=== PATIENT | male | born 1970 | race Caucasian/White ===

== ENCOUNTER 2017-05-05 11:03 | Inpatient (IN) | payer OTHER ==
[2017-05-05 11:58] VITALS: BMI 28.3
--- NOTE | 2017-05-05 13:03 | HP ---
COWS - Scale Resting Pulse: 0= [place] 80 or Below Sweatin= Chills/Flushing Restless Observation: 3= Extraneous Movement Pupil Size: 2= Moderately Dilated Bone or Joint Aches: 4=Acute Joint/Muscle Pain Runny Nose/ Eye Tearin= Nasal Congestion GI Upset > 30mins: 1= Stomach Cramp Tremor Observation: 1= Tremor [place], Not Seen Yawning Observation: 1= 1-2x During Session Anxiety or Irritability: 2=Irritable/Anxious Goose Flesh Skin: 0=Smooth Skin COWS Score: 16 CIWA Score - CIWA Score Nausea/Vomitin Muscle Tremors: 4-Moderate,w/Arms Extend Anxiety: 4-Mod. Anxious/Guarded Agitation: 3 Paroxysmal Sweats: 1-Minimal Palms Moist Orientation: 0-Oriented Tacttile Disturbances: 0-None Auditory Disturbances: 0-None Visual Disturbances: 0-None Headache: 0-None Present CIWA-Ar Total Score: 15 Admission ROS [facility] - HPI Chief Complaint: DETOX TX FOR HEROIN,COCAINE AND ALCOHOL DEPENDENCE Allergies/Adverse Reactions: Allergies Allergy/AdvReac Type Severity Reaction Status Date / Time No Known Allergies Allergy Verified 05/05/17 12:46 History of Present Illness: 46 Y/O MALE WITH A HX OF ALCOHOL, HEROIN AND COCAINE DEPENDENCE SEEKING DETOX TX Exam Limitations: No Limitations - Ebola screening Have you traveled outside of the country in the last 21 days: No Have you had contact with anyone from an Ebola affected area: No Have you been sick,other than usual withdrawal symptoms: No Do you have a fever: No - Review of Systems Constitutional: Chills, Night Sweats, Changes in sleep EENT: reports: Blurred Vision (READING GLASSES), Tearing, Nose Congestion, Dental Problems (MISSING TEETH) Respiratory: reports: No Symptoms reported Cardiac: reports: Lightheadedness GI: reports: Constipated, Diarrhea, Nausea : reports: Frequency Musculoskeletal: reports: Back Pain, Joint Pain Integumentary: reports: Bruising (RIGHT ELBOW IVD INJ SITE) Neuro: reports: Tremors, Dizziness Endocrine: reports: No Symptoms Reported Hematology: reports: No Symptoms Reported Psychiatric: reports: Orientated x3, Anxious Other Systems: Reviewed and Negative Patient History - Patient Medical History Hx Anemia: No Hx Asthma: No Hx Chronic Obstructive Pulmonary Disease (COPD): No Hx Cancer: No Hx Cardiac Disorders: No Hx Congestive Heart Failure: No Hx Hypertension: No Hx Hypercholesterolemia: No Hx Pacemaker: No HX Cerebrovascular Accident: No Hx Seizures: No Hx Dementia: No Hx Diabetes: Yes (TYPE 2 DM-UNDER CONTROL) Hx Gastrointestinal Disorders: No Hx Liver Disease: No Hx Genitourinary Disorders: No Hx Sexually Transmitted Disorders: No (DENIES) Hx Renal Disease (ESRD): No Hx Thyroid Disease: No Hx Human Immunodeficiency Virus (HIV): No (SINCE 01/2017- RECENTLY DIAGNOSED.) Hx Hepatitis C: Yes (SINCE ONE YR AGO) Hx Depression: No Hx Suicide Attempt: No (DENIES) Hx Schizophrenia: No Other Medical History: WTQKAY=099;GLNLR=882,000; HCV LOAD= 750,000; ELEVATED LIVER ENZYMES. - Patient Surgical History Past Surgical History: Yes Hx Neurologic Surgery: No Hx Cataract Extraction: No Hx Cardiac Surgery: No Hx Lung Surgery: No Hx Breast Surgery: No Hx Breast Biopsy: No Hx Abdominal Surgery: No Hx Appendectomy: No Hx Cholecystectomy: No Hx Genitourinary Surgery: No Hx Orthopedic Surgery: No Other Surgical History: Tonsilectomy in 1973 Anesthesia Reaction: No - PPD History Previous Implant?: Yes Documented Results: Negative w/proof Implanted On Prior [facility] Admission?: Yes Date: 03/17/15 PPD to be Administered?: Yes - Reproductive History Patient is a Female of Child Bearing Age (11 -55 yrs old): No (MALE) Patient : (N/A) - Smoking Cessation Smoking history: Current every day smoker Have you smoked in the past 12 months: Yes Aproximately how many cigarettes per day: 20 Cigars Per Day: 0 Hx Chewing Tobacco Use: No Initiated information on smoking cessation: Yes 'Breaking Loose' booklet given: 05/05/17 - Substance & Tx. History Hx Alcohol Use: Yes (BEER/VODKA) Hx Substance Use: Yes (HEROIN/COCAINE) Substance Use Type: Alcohol, Cocaine, Heroin Hx Substance Use Treatment: Yes (LAST TX AT [facility]) - Substances Abused Heroin Route: Injection Frequency: Daily Amount used: 25-30 bags Age of first use: 42 Date of Last Use: 05/04/17 Cocaine Route: Smoking Frequency: Daily Amount used: 1/2 Gm Age of first use: 14 Date of Last Use: 05/04/17 Alcohol Route: Oral Frequency: Daily Amount used: Beer - 4 25oz Age of first use: 7 Date of Last Use: 05/05/17 Family Disease History - Family Disease History Family Disease History: Other: Father (ALCOHOL), Mother (ALCOHOL), Brother ( ALCOHOL) Admission Physical Exam [facility] - Vital Signs Vital Signs: Vital Signs - 24 hr 05/05/17 11:54 Temperature 97.7 F Pulse Rate 78 Respiratory 20 Rate Blood Pressure 140/85 - Physical General Appearance: Yes: Moderate Distress, Irritable, Anxious HEENTM: Yes: EOMI, Normocephalic, JAYS[place], Pharynx Normal, Nasal Congestion, Rhinorrhea Respiratory: Yes: Chest Non-Tender, Lungs Clear, Normal Breath Sounds, No Respiratory Distress Neck: Yes: No masses,lesions,Nodules, Supple, Trachea in good position Breast: Yes: Breast Exam Deferred Cardiology: Yes: Regular Rhythm, Regular Rate, S1, S2 Abdominal: Yes: Normal Bowel Sounds, Non Tender, Soft Genitourinary: Yes: Other (N/C) Musculoskeletal: Yes: full range of Motion, Gait Steady Extremities: Yes: Normal Range of Motion, Non-Tender Neurological: Yes: snow maker II-XII NML intact, Fully Oriented, Alert, Motor Strength 5/5 Integumentary: Yes: Dry, Warm, Track [place] (LEFT AND RIGHT ELBOW) - Diagnostic (1) DM (diabetes mellitus), type 2 Current Visit: Yes Status: Suspected Comment: PREVIOUS HX. TODAY, PT DECLINES MONITORING STATING HE IS UNDER CONTROL. PT ALSO DECLINED NCS DIET AND WANTS REGULAR DIET. (2) Nicotine dependence Current Visit: Yes Status: Acute Qualifiers: Nicotine product type: cigarettes Substance use status: in withdrawal Qualified Code(s): F17.213 - Nicotine dependence, cigarettes, with withdrawal (3) Alcohol dependence with uncomplicated withdrawal Current Visit: Yes Status: Acute (4) Cocaine dependence, uncomplicated Current Visit: Yes Status: Acute (5) Opioid dependence with withdrawal Current Visit: Yes Status: Acute (6) HIV (human immunodeficiency virus infection) Current Visit: Yes Status: Chronic (7) History of hepatitis C Current Visit: Yes Status: Chronic Cleared for Admission [facility] - Detox or Rehab [facility] Level of Care: Medically Managed Detox Regimen/Protocol: Methadone/Librium [facility] Breath Alcohol Content Breath Alcohol Content: 0 Urine Drug Screen - Results Drug Screen Negative: No Urine Drug Screen Results: MARINA-Cocaine, OPI-Opiates, MTD-Methadone
[2017-05-05] MEDS ORDERED: LOPERAMIDE HCL 2 MG CAPSULE PO PRN (13:22)
[2017-05-05] MEDS ORDERED: P-EPHED 60MG/TRIPROLIDI 2.5MG TABLET PO PRN (13:22)
[2017-05-05] MEDS ORDERED: MAGNESIUM HYDROX 2400MG/30ML ORAL SUSPENSION 30 ML CUP PO PRN (13:22)
[2017-05-05] MEDS ORDERED: IBUPROFEN 400 MG TABLET (FP) PO PRN (13:22)
[2017-05-05] MEDS ORDERED: MAGNESIUM CITRATE 300 ML BOTTLE PO PRN (13:22)
[2017-05-05] MEDS ORDERED: guaiFENesin/D-METHORPHAN HB 10 ML UNIT-DOSE CUPS PO PRN (13:22)
[2017-05-05] MEDS ORDERED: hydrOXYzine PAMOATE 25 MG CAPSULE (FP) PO PRN (13:22)
[2017-05-05] MEDS ORDERED: MAG HYDROX/AL HYDROX/SIMETH 30 ML UNIT-DOSE CUP PO PRN (13:22)
[2017-05-05] MEDS ORDERED: chlordiazePOXIDE HCL 25 MG CAPSULE PO PRN (13:22)
[2017-05-05] MEDS ORDERED: MENTHOL/PHENOL 1 EACH UD MM PRN (13:22)
[2017-05-05] MEDS ORDERED: ACETAMINOPHEN 325 MG TABLET (FP) PO PRN (13:22)
[2017-05-05] MEDS: NICOTINE 14 MG/24 HOURS TOPICAL PATCH TD SCH (14:09)
[2017-05-05] MEDS ORDERED: chlordiazePOXIDE HCL 25 MG CAPSULE PO ONE (14:15)
[2017-05-05] MEDS ORDERED: METHADONE HCL 10 MG TABLET (FOR DETOX USE ONLY) PO ONE ×2 (14:15→23:00)
[2017-05-05] MEDS: chlordiazePOXIDE HCL 25 MG CAPSULE PO SCH ×2 (17:20→22:29)
[2017-05-05 17:42] LABS: MCH 30.5 pg (25.7-33.7); MCHC 34.4 g/dl (32.0-35.9); MEAN CELL VOLUME 88.7 fl (80-96); PLATELET COUNT 153 K/MM3 (134-434); RDW 15.1 % (11.9-15.9); WHITE BLOOD COUNT 5.4 K/mm3 (4.0-10.0)
[2017-05-05 17:51] LABS: ALBUMIN 3.6 g/dl (3.4-5.0); ALK PHOS 59 U/L (45-117); ANION GAP 9 (8-16); BILIRUBIN,TOTAL 1.5 mg/dL (0.2-1.0); CALCIUM 8.4 mg/dL (8.5-10.1); CO2 29 mmol/L (21-32); CREATININE 1.1 mg/dL (0.7-1.3); GLUCOSE,RANDOM 195 mg/dL (74-106); SGOT/AST 315 U/L (15-37); SGPT/ALT 302 U/L (12-78); TOT PROT 7.3 g/dl (6.4-8.2)
[2017-05-05 18:06] LABS: URINE APPEARANCE CLEAR; URINE BILIRUBIN NEGATIVE (NEGATIVE); URINE BLOOD NEGATIVE (NEGATIVE); URINE COLOR AMBER; URINE GLUCOSE (UA) NEGATIVE (NEGATIVE); URINE KETONE NEGATIVE (NEGATIVE); URINE LEUK ESTERASE NEGATIVE (NEGATIVE); URINE NITRITE NEGATIVE (NEGATIVE); URINE PROTEIN NEGATIVE (NEGATIVE); URINE UROBILINOGEN 4.0 E.U/dl mg/dL (0.2-1.0)
--- NOTE | 2017-05-05 19:13 | EKG ---
Test Reason : Blood Pressure : / mmHG Vent. Rate : 072 BPM Atrial Rate : 072 BPM P-R Int : 132 ms QRS Dur : 086 ms QT Int : 418 ms P-R-T Axes : 014 017 020 degrees QTc Int : 457 ms SINUS RHYTHM WITH PREMATURE ATRIAL COMPLEXES WITH ABERRANT CONDUCTION INFERIOR INFARCT , AGE UNDETERMINED ABNORMAL ECG NO PREVIOUS ECGS AVAILABLE REPEAT EKG IF CLINICALLY INDICATED Confirmed by JOVANA PRO MD ([id number]) on 05/05/2017 7:13:29 PM Referred By: Paramjit Montanez Confirmed By:JOVANA PRO MD
[2017-05-05] MEDS: THIAMINE HCL 100 MG TABLET (FP) PO SCH (22:29)
[2017-05-05] MEDS: diphenhydrAMINE HCL 50 MG CAPSULE PO PRN (22:30)
[2017-05-06] MEDS: chlordiazePOXIDE HCL 25 MG CAPSULE PO SCH ×4 (05:45→22:17)
[2017-05-06] MEDS ORDERED: METHADONE HCL 10 MG TABLET (FOR DETOX USE ONLY) PO SCH (10:00)
[2017-05-06] MEDS: PRENATAL VITAMINS W/ FOLIC ACID TABLET (FP) PO SCH (10:31)
[2017-05-06] MEDS: NICOTINE 14 MG/24 HOURS TOPICAL PATCH TD SCH (10:32)
[2017-05-06] MEDS: NICOTINE POLACRILEX 2 MG GUM BC PRN (10:32)
--- NOTE | 2017-05-06 11:15 | EKG ---
Test Reason : Blood Pressure : / mmHG Vent. Rate : 061 BPM Atrial Rate : 061 BPM P-R Int : 126 ms QRS Dur : 086 ms QT Int : 438 ms P-R-T Axes : 006 -20 037 degrees QTc Int : 440 ms SINUS RHYTHM WITH PREMATURE ATRIAL COMPLEXES POSSIBLE INFERIOR INFARCT (CITED ON OR BEFORE 05-MAY-2017) ABNORMAL ECG WHEN COMPARED WITH ECG OF 05-MAY-2017 12:53, NO SIGNIFICANT CHANGE WAS FOUND Confirmed by LASHAUN TRAMMELL, GUNNER ([id number]) on 05/06/2017 11:15:29 AM Referred By: Paramjit Montanez Confirmed By:GUNNER WILKS MD
--- NOTE | 2017-05-06 11:26 | PN ---
[facility] CIWA - CIWA Score Nausea/Vomitin-No Nausea/No Vomiting Muscle Tremors: 4-Moderate,w/Arms Extend Anxiety: 4-Mod. Anxious/Guarded Agitation: 4-Moderately Restless Paroxysmal Sweats: 1-Minimal Palms Moist Orientation: 0-Oriented Tacttile Disturbances: 3-Moderate Itch/Numb/Burn Auditory Disturbances: 0-None Visual Disturbances: 0-None Headache: 0-None Present CIWA-Ar Total Score: 16 S COWS - Scale Resting Pulse: 0= [place] 80 or Below Sweatin= Chills/Flushing Restless Observation: 3= Extraneous Movement Pupil Size: 2= Moderately Dilated Bone or Joint Aches: 4=Acute Joint/Muscle Pain Runny Nose/ Eye Tearin= Nasal Congestion GI Upset > 30mins: 1= Stomach Cramp Tremor Observation of Outstretched Hands: 1= Tremor [place], Not Seen Yawning Observation: 1= 1-2x During Session Anxiety or Irritability: 1=Feels Anxious/Irritable Goose Flesh Skin: 0=Smooth Skin COWS Score: 15 [facility] Progress Note (SOAP) Subjective: IRRITABILITY,ANXIETY,TREMORS,SWEATS,FATIGUE. Objective: 05/06/17 11:24 Vital Signs Temperature 96.7 F L 05/06/17 10:16 Pulse Rate 73 05/06/17 10:16 Respiratory Rate 16 05/06/17 10:16 Blood Pressure 115/76 05/06/17 10:16 O2 Sat by Pulse Oximetry (%) Laboratory 05/05/17 05/05/17 05/05/17 12:36 13:00 13:00 WBC 5.4 K/mm3 D K/mm3 (4.0-10.0) RBC 4.43 M/mm3 M/mm3 (4.00-5.60) Hgb 13.5 GM/dL D GM/dL (11.7-16.9) Hct 39.3 % % (35.4-49) MCV 88.7 fl fl (80-96) MCH 30.5 pg pg (25.7-33.7) MCHC 34.4 g/dl g/dl (32.0-35.9) RDW 15.1 % % (11.9-15.9) Plt Count 153 K/MM3 D K/MM3 (134-434) MPV 8.0 fl fl (7.5-11.1) Sodium 137 mmol/L mmol/L (136-145) Potassium 3.6 mmol/L mmol/L (3.5-5.1) Chloride 99 mmol/L mmol/L (98-107) Carbon Dioxide 29 mmol/L mmol/L (21-32) Anion Gap 9 (8-16) BUN 20 mg/dL H D mg/dL (7-18) Creatinine 1.1 mg/dL D mg/dL (0.7-1.3) Creat Clearance w eGFR > 60 (>60) POC Glucometer 183 UNITS UNITS (()) Random Glucose 195 mg/dL H D mg/dL (74-106) Calcium 8.4 mg/dL L mg/dL (8.5-10.1) Total Bilirubin 1.5 mg/dL H D mg/dL (0.2-1.0) AST 315 U/L H D U/L (15-37) ALT 302 U/L H U/L (12-78) Alkaline Phosphatase 59 U/L D U/L (45-117) Total Protein 7.3 g/dl g/dl (6.4-8.2) Albumin 3.6 g/dl g/dl (3.4-5.0) Urine Color Urine Appearance Urine pH Ur Specific [place] Urine Protein Urine Glucose (UA) Urine Ketones Urine Blood Urine Nitrite Urine Bilirubin Urine Urobilinogen Ur Leukocyte Esterase RPR Titer 05/05/17 05/05/17 05/05/17 13:00 14:15 16:23 WBC RBC Hgb Hct MCV MCH MCHC RDW Plt Count MPV Sodium Potassium Chloride Carbon Dioxide Anion Gap BUN Creatinine Creat Clearance w eGFR POC Glucometer 115 UNITS UNITS (()) Random Glucose Calcium Total Bilirubin AST ALT Alkaline Phosphatase Total Protein Albumin Urine Color Bhakti Urine Appearance Clear Urine pH 5.0 D (5.0-8.0) Ur Specific [place] 1.025 (1.005-1.025) Urine Protein Negative (NEGATIVE) Urine Glucose (UA) Negative (NEGATIVE) Urine Ketones Negative (NEGATIVE) Urine Blood Negative (NEGATIVE) Urine Nitrite Negative (NEGATIVE) Urine Bilirubin Negative (NEGATIVE) Urine Urobilinogen 4.0 e.u/dl mg/dL mg/dL (0.2-1.0) Ur Leukocyte Esterase Negative (NEGATIVE) RPR Titer Nonreactive (NONREACTIVE) LABS NOTED Assessment: 05/06/17 11:25 WITHDRAWAL SX Plan: CONTINUE DETOX REPEAT CMP
[2017-05-06] MEDS: THIAMINE HCL 100 MG TABLET (FP) PO SCH (22:17)
[2017-05-06] MEDS: diphenhydrAMINE HCL 50 MG CAPSULE PO PRN (22:17)
[2017-05-07] MEDS: chlordiazePOXIDE HCL 25 MG CAPSULE PO SCH ×2 (05:35→10:23)
[2017-05-07] MEDS: NICOTINE POLACRILEX 2 MG GUM BC PRN (05:38)
[2017-05-07 09:59] LABS: ALBUMIN 3.3 g/dl (3.4-5.0); ALK PHOS 69 U/L (45-117); ANION GAP 7 (8-16); BILIRUBIN,TOTAL 0.8 mg/dL (0.2-1.0); CALCIUM 8.5 mg/dL (8.5-10.1); CO2 28 mmol/L (21-32); CREATININE 0.7 mg/dL (0.7-1.3); GLUCOSE,RANDOM 178 mg/dL (74-106); SGOT/AST 360 U/L (15-37); SGPT/ALT 357 U/L (12-78); TOT PROT 7.1 g/dl (6.4-8.2)
[2017-05-07] MEDS: METHADONE HCL 5 MG TABLET (FOR DETOX USE ONLY) PO SCH (10:23)
[2017-05-07] MEDS: PRENATAL VITAMINS W/ FOLIC ACID TABLET (FP) PO SCH (10:23)
[2017-05-07] MEDS: NICOTINE 14 MG/24 HOURS TOPICAL PATCH TD SCH (10:23)
--- NOTE | 2017-05-07 11:50 | PN ---
[facility] CIWA - CIWA Score Nausea/Vomitin-No Nausea/No Vomiting Muscle Tremors: 4-Moderate,w/Arms Extend Anxiety: 4-Mod. Anxious/Guarded Agitation: 4-Moderately Restless Paroxysmal Sweats: 1-Minimal Palms Moist Orientation: 0-Oriented Tacttile Disturbances: 3-Moderate Itch/Numb/Burn Auditory Disturbances: 0-None Visual Disturbances: 0-None Headache: 0-None Present CIWA-Ar Total Score: 16 S COWS - Scale Resting Pulse: 0= [place] 80 or Below Sweatin= Chills/Flushing Restless Observation: 3= Extraneous Movement Pupil Size: 0= Normal to Room Light Bone or Joint Aches: 4=Acute Joint/Muscle Pain Runny Nose/ Eye Tearin= Nasal Congestion GI Upset > 30mins: 1= Stomach Cramp Tremor Observation of Outstretched Hands: 1= Tremor [place], Not Seen Yawning Observation: 1= 1-2x During Session Anxiety or Irritability: 2=Irritable/Anxious Goose Flesh Skin: 0=Smooth Skin COWS Score: 14 [facility] Progress Note (SOAP) Subjective: ANXIETY,IRRITABILITY,SWEATS,FATIGUE. Objective: 05/07/17 11:50 Vital Signs Temperature 97.3 F L 05/07/17 10:35 Pulse Rate 79 05/07/17 10:35 Respiratory Rate 18 05/07/17 10:35 Blood Pressure 121/74 05/07/17 10:35 O2 Sat by Pulse Oximetry (%) Laboratory Last Values WBC 5.4 K/mm3 (4.0-10.0) D 05/05/17 13:00 RBC 4.43 M/mm3 (4.00-5.60) 05/05/17 13:00 Hgb 13.5 GM/dL (11.7-16.9) D 05/05/17 13:00 Hct 39.3 % (35.4-49) 05/05/17 13:00 MCV 88.7 fl (80-96) 05/05/17 13:00 MCH 30.5 pg (25.7-33.7) 05/05/17 13:00 MCHC 34.4 g/dl (32.0-35.9) 05/05/17 13:00 RDW 15.1 % (11.9-15.9) 05/05/17 13:00 Plt Count 153 K/MM3 (134-434) D 05/05/17 13:00 MPV 8.0 fl (7.5-11.1) 05/05/17 13:00 Sodium 137 mmol/L (136-145) 05/07/17 07:00 Potassium 4.3 mmol/L (3.5-5.1) 05/07/17 07:00 Chloride 102 mmol/L (98-107) 05/07/17 07:00 Carbon Dioxide 28 mmol/L (21-32) 05/07/17 07:00 Anion Gap 7 (8-16) L 05/07/17 07:00 BUN 16 mg/dL (7-18) 05/07/17 07:00 Creatinine 0.7 mg/dL (0.7-1.3) D 05/07/17 07:00 Creat Clearance w eGFR > 60 (>60) 05/07/17 07:00 POC Glucometer 115 UNITS (()) 05/05/17 16:23 Random Glucose 178 mg/dL (74-106) H 05/07/17 07:00 Calcium 8.5 mg/dL (8.5-10.1) 05/07/17 07:00 Total Bilirubin 0.8 mg/dL (0.2-1.0) D 05/07/17 07:00 AST 360 U/L (15-37) H 05/07/17 07:00 ALT 357 U/L (12-78) H 05/07/17 07:00 Alkaline Phosphatase 69 U/L (45-117) 05/07/17 07:00 Total Protein 7.1 g/dl (6.4-8.2) 05/07/17 07:00 Albumin 3.3 g/dl (3.4-5.0) L 05/07/17 07:00 Urine Color Bhakti 05/05/17 14:15 Urine Appearance Clear 05/05/17 14:15 Urine pH 5.0 (5.0-8.0) D 05/05/17 14:15 Ur Specific [place] 1.025 (1.005-1.025) 05/05/17 14:15 Urine Protein Negative (NEGATIVE) 05/05/17 14:15 Urine Glucose (UA) Negative (NEGATIVE) 05/05/17 14:15 Urine Ketones Negative (NEGATIVE) 05/05/17 14:15 Urine Blood Negative (NEGATIVE) 05/05/17 14:15 Urine Nitrite Negative (NEGATIVE) 05/05/17 14:15 Urine Bilirubin Negative (NEGATIVE) 05/05/17 14:15 Urine Urobilinogen 4.0 e.u/dl mg/dL (0.2-1.0) 05/05/17 14:15 Ur Leukocyte Esterase Negative (NEGATIVE) 05/05/17 14:15 RPR Titer Nonreactive (NONREACTIVE) 05/05/17 13:00 Assessment: 05/07/17 11:50 WITHDRAWAL SX Plan: CONTINUE DETOX
[2017-05-07] MEDS: chlordiazePOXIDE 5 MG CAPSULE PO SCH ×2 (17:50→22:27)
[2017-05-07] MEDS: diphenhydrAMINE HCL 50 MG CAPSULE PO PRN (22:26)
[2017-05-07] MEDS: THIAMINE HCL 100 MG TABLET (FP) PO SCH (22:27)
[2017-05-08] MEDS: chlordiazePOXIDE 5 MG CAPSULE PO SCH ×2 (05:29→10:10)
[2017-05-08] MEDS: METHADONE HCL 5 MG TABLET (FOR DETOX USE ONLY) PO SCH (10:10)
[2017-05-08] MEDS: NICOTINE 14 MG/24 HOURS TOPICAL PATCH TD SCH (10:10)
[2017-05-08] MEDS: PRENATAL VITAMINS W/ FOLIC ACID TABLET (FP) PO SCH (10:10)
[2017-05-08] MEDS: NICOTINE POLACRILEX 2 MG GUM BC PRN (10:12)
[2017-05-08] MEDS: chlordiazePOXIDE HCL 10 MG CAPSULE PO SCH ×2 (17:27→22:22)
--- NOTE | 2017-05-08 19:17 | PN ---
[facility] Progress Note (SOAP) Subjective: Body Aches, Anxious, Stomach Cramping, Nausea, Interrupted Sleep. Objective: PT. A & O X 3. NO ACUTE DISTRESS. 05/08/17 19:14 Vital Signs Temperature 97.0 F L 05/08/17 18:27 Pulse Rate 67 05/08/17 18:27 Respiratory Rate 18 05/08/17 18:27 Blood Pressure 101/63 05/08/17 18:27 O2 Sat by Pulse Oximetry (%) Laboratory Tests 05/05/17 05/05/17 05/05/17 12:36 13:00 13:00 WBC 5.4 D RBC 4.43 Hgb 13.5 D Hct 39.3 MCV 88.7 MCH 30.5 MCHC 34.4 RDW 15.1 Plt Count 153 D MPV 8.0 Sodium 137 Potassium 3.6 Chloride 99 Carbon Dioxide 29 Anion Gap 9 BUN 20 H D Creatinine 1.1 D Creat Clearance w eGFR > 60 POC Glucometer 183 Random Glucose 195 H D Calcium 8.4 L Total Bilirubin 1.5 H D AST 315 H D ALT 302 H Alkaline Phosphatase 59 D Total Protein 7.3 Albumin 3.6 Urine Color Urine Appearance Urine pH Ur Specific [place] Urine Protein Urine Glucose (UA) Urine Ketones Urine Blood Urine Nitrite Urine Bilirubin Urine Urobilinogen Ur Leukocyte Esterase RPR Titer 05/05/17 05/05/17 05/05/17 13:00 14:15 16:23 WBC RBC Hgb Hct MCV MCH MCHC RDW Plt Count MPV Sodium Potassium Chloride Carbon Dioxide Anion Gap BUN Creatinine Creat Clearance w eGFR POC Glucometer 115 Random Glucose Calcium Total Bilirubin AST ALT Alkaline Phosphatase Total Protein Albumin Urine Color Bhakti Urine Appearance Clear Urine pH 5.0 D Ur Specific [place] 1.025 Urine Protein Negative Urine Glucose (UA) Negative Urine Ketones Negative Urine Blood Negative Urine Nitrite Negative Urine Bilirubin Negative Urine Urobilinogen 4.0 e.u/dl Ur Leukocyte Esterase Negative RPR Titer Nonreactive 05/07/17 07:00 WBC RBC Hgb Hct MCV MCH MCHC RDW Plt Count MPV Sodium 137 Potassium 4.3 Chloride 102 Carbon Dioxide 28 Anion Gap 7 L BUN 16 Creatinine 0.7 D Creat Clearance w eGFR > 60 POC Glucometer Random Glucose 178 H Calcium 8.5 Total Bilirubin 0.8 D AST 360 H ALT 357 H Alkaline Phosphatase 69 Total Protein 7.1 Albumin 3.3 L Urine Color Urine Appearance Urine pH Ur Specific [place] Urine Protein Urine Glucose (UA) Urine Ketones Urine Blood Urine Nitrite Urine Bilirubin Urine Urobilinogen Ur Leukocyte Esterase RPR Titer LABS NOTED. RESULTS OF REPEAT CMP NOTED. 05/08/17 19:19 Assessment: 05/08/17 19:14 WITHDRAWAL SYMPTOMS. Plan: CONTINUE DETOX. HGB A1C ORDERED.
[2017-05-08] MEDS: THIAMINE HCL 100 MG TABLET (FP) PO SCH (22:22)
[2017-05-08] MEDS: diphenhydrAMINE HCL 50 MG CAPSULE PO PRN (22:22)
[2017-05-09] MEDS: diphenhydrAMINE HCL 50 MG CAPSULE PO PRN (01:23)
[2017-05-09] MEDS: chlordiazePOXIDE HCL 10 MG CAPSULE PO SCH ×2 (05:31→10:26)
[2017-05-09 09:31] VITALS: BP 144/84; PULSE 72; TEMP 96.9
[2017-05-09] MEDS ORDERED: METHADONE HCL 10 MG TABLET (FOR DETOX USE ONLY) PO SCH (10:00)
[2017-05-09] MEDS: NICOTINE 14 MG/24 HOURS TOPICAL PATCH TD SCH (10:26)
[2017-05-09] MEDS: PRENATAL VITAMINS W/ FOLIC ACID TABLET (FP) PO SCH (10:26)
[2017-05-09] MEDS: NICOTINE POLACRILEX 2 MG GUM BC PRN (10:26)
--- NOTE | 2017-05-09 14:13 | DS ---
[facility] Detox Discharge Summary Admission Date: 05/05/17 Discharge Date: 05/09/17 - History Present History: Alcohol Dependence, Cocaine Dependence, Opioid Dependence Pertinent Past History: DMT2 (refusing to take medication, stated he has no pharmacy and will get medication from his PCP), instructed to f/u with PCP in 1-2 weeks or sooner to start antidiabetic medications, states he f/u at project renewal). Patient educated on importance of taking diabetic medications in preventing heart disease, eye and kidney problems and any other health related problems HIV Hepatitis C - Physical Exam Results Vital Signs: Vital Signs Temperature 96.9 F L 05/09/17 09:30 Pulse Rate 72 05/09/17 09:30 Respiratory Rate 18 05/09/17 09:30 Blood Pressure 144/84 05/09/17 09:30 O2 Sat by Pulse Oximetry (%) Pertinent Admission Physical Exam Findings: Withdrawal symptoms Laboratory Tests 05/05/17 05/05/17 05/05/17 12:36 13:00 13:00 WBC 5.4 D RBC 4.43 Hgb 13.5 D Hct 39.3 MCV 88.7 MCH 30.5 MCHC 34.4 RDW 15.1 Plt Count 153 D MPV 8.0 Sodium 137 Potassium 3.6 Chloride 99 Carbon Dioxide 29 Anion Gap 9 BUN 20 H D Creatinine 1.1 D Creat Clearance w eGFR > 60 POC Glucometer 183 Random Glucose 195 H D Calcium 8.4 L Total Bilirubin 1.5 H D AST 315 H D ALT 302 H Alkaline Phosphatase 59 D Total Protein 7.3 Albumin 3.6 Urine Color Urine Appearance Urine pH Ur Specific [place] Urine Protein Urine Glucose (UA) Urine Ketones Urine Blood Urine Nitrite Urine Bilirubin Urine Urobilinogen Ur Leukocyte Esterase RPR Titer 05/05/17 05/05/17 05/05/17 13:00 14:15 16:23 WBC RBC Hgb Hct MCV MCH MCHC RDW Plt Count MPV Sodium Potassium Chloride Carbon Dioxide Anion Gap BUN Creatinine Creat Clearance w eGFR POC Glucometer 115 Random Glucose Calcium Total Bilirubin AST ALT Alkaline Phosphatase Total Protein Albumin Urine Color Bhakti Urine Appearance Clear Urine pH 5.0 D Ur Specific [place] 1.025 Urine Protein Negative Urine Glucose (UA) Negative Urine Ketones Negative Urine Blood Negative Urine Nitrite Negative Urine Bilirubin Negative Urine Urobilinogen 4.0 e.u/dl Ur Leukocyte Esterase Negative RPR Titer Nonreactive 05/07/17 07:00 WBC RBC Hgb Hct MCV MCH MCHC RDW Plt Count MPV Sodium 137 Potassium 4.3 Chloride 102 Carbon Dioxide 28 Anion Gap 7 L BUN 16 Creatinine 0.7 D Creat Clearance w eGFR > 60 POC Glucometer Random Glucose 178 H Calcium 8.5 Total Bilirubin 0.8 D AST 360 H ALT 357 H Alkaline Phosphatase 69 Total Protein 7.1 Albumin 3.3 L Urine Color Urine Appearance Urine pH Ur Specific [place] Urine Protein Urine Glucose (UA) Urine Ketones Urine Blood Urine Nitrite Urine Bilirubin Urine Urobilinogen Ur Leukocyte Esterase RPR Titer Labs noted - Medication Discharge Medications: Ambulatory Orders NK [No Known Home Medication] 03/15/15 - Diagnosis (1) Alcohol dependence with uncomplicated withdrawal Status: Acute (2) Cocaine dependence, uncomplicated Status: Chronic (3) Opioid dependence with withdrawal Status: Acute (4) HIV (human immunodeficiency virus infection) Status: Chronic (5) History of hepatitis C Status: Chronic (6) DM (diabetes mellitus), type 2 Status: Chronic - AMA Did Patient Leave Against Medical Advice: Yes (F/U with PCP in 1-2 weeks for all medical problems)
[2017-05-10] MEDS ORDERED: METHADONE HCL 5 MG TABLET (FOR DETOX USE ONLY) PO SCH (06:00)
== END 2017-05-09 11:55 | disposition left against medical advice (07) | DRG 770 ==
LOC: YASAS 11:03 → Y3N 13:12
PROVIDERS: ADMIT Internal Medicine; ATTEND Internal Medicine
PROC: HZ2ZZZZ Detoxification Services for Substance Abuse Treatment (ICD-10-PCS; principal; 2017-05-05)
DX: F11.23 Opioid dependence with withdrawal (principal); F10.230 Alcohol dependence with withdrawal, uncomplicated; F14.20 Cocaine dependence, uncomplicated; F17.213 Nicotine dependence, cigarettes, with withdrawal; Z21 Asymptomatic human immunodeficiency virus [HIV] infection status; B18.2 Chronic viral hepatitis C; E11.9 Type 2 diabetes mellitus without complications; Z59.0 Homelessness
CPT/HCPCS: 36415; 80053; 81003; 85027; 86593; 93005; 93010